=== PATIENT | male | born 1980 | race Caucasian/White ===

== ENCOUNTER 2016-10-06 15:24 | Emergency (ER) | payer OTHER ==
--- NOTE | 2016-10-06 16:09 | RAD ---
RIGHT FINGER 3 VIEWS HISTORY: Crush injury of the right third digit. COMPARISONS: None. TECHNIQUE: Frontal, lateral, and oblique views of the right third digit. ALIGNMENT: Grossly unremarkable. FRACTURE: No displaced acute fracture. SOFT TISSUES: Soft tissue lucency and swelling of the distal right third digit, compatible with history of soft tissue injury. RADIOOPAQUE FOREIGN BODY: None. IMPRESSION: Evidence of soft tissue injury of the right third digit. No gross malalignment or displaced acute fracture noted.
== END 2016-10-06 17:01 | disposition home or self-care (01) ==
LOC: ED 15:24
DX: S61.312A Laceration without foreign body of right middle finger with damage to nail, initial encounter (principal); W23.0XXA Caught, crushed, jammed, or pinched between moving objects, initial encounter; Y92.9 Unspecified place or not applicable